=== PATIENT | male | born 1985 | race Hispanic/Latino ===

== ENCOUNTER 2023-03-13 05:41 | Day surgery (SDC) | payer OTHER ==
[2023-03-09 14:33] LABS: BASOPHILS # (AUTO) 0.04 K/uL (0.00-0.20); BASOPHILS % (AUTO) 0.7 % (0.0-5.0); EOSINOPHILS # (AUTO) 0.23 K/uL (0.00-0.70); EOSINOPHILS % (AUTO) 3.8 % (0.0-8.0); HEMATOCRIT 44.5 % (42-54); IMMATURE GRANULOCYTE ABSOLUTE 0.03 K/uL (0-1); LYMPHOCYTES # (AUTO) 1.7 K/uL (1.0-4.8); LYMPHOCYTES % (AUTO) 27.9 % (21.0-51.0); MEAN CORPUSCULAR HEMOGLOBIN 28.3 pg (27.0-33.0); MEAN CORPUSCULAR HGB CONC 33.7 g/dL (32.0-36.0); MONOCYTES # (AUTO) 0.4 K/uL (0.1-1.0); MONOCYTES % (AUTO) 6.2 % (3.0-13.0); NEUTROPHILS # (AUTO) 3.7 K/uL (1.8-7.7); NEUTROPHILS % (AUTO) 60.9 % (40.0-77.0); PLATELET COUNT (AUTO) 276 K/uL (130-400); RED CELL DISTRIBUTION WIDTH 13.7 % (11.0-15.5); WHITE BLOOD COUNT (AUTO) 6.1 K/uL (4.8-10.8)
[2023-03-09 14:39] LABS: ALBUMIN 3.7 g/dL (3.5-5.0); CREATININE 1.1 mg/dL (0.5-1.5)
[2023-03-09 14:49] VITALS: BP 131/82; PULSE 89; RESP 18
[~2023-03-13] VITALS: Ht 175.3 cm; Wt 87.3 kg
[2023-03-13] VITALS (12 sets, daily range): BP systolic 98–136; BP diastolic 61–85; PULSE 71–109; RESP 14–17
[~2023-03-13 05:41] MED LIST: FAMO20TA8 PO; FENO48TA10 PO; LOSA50TA64 PO; VENL-191 PO
[2023-03-13] MEDS ORDERED: ACETAMINOPHEN 1,000 MG/100 ML VIAL IV ONE (06:37)
[2023-03-13] MEDS ORDERED: LIDOCAINE PF 100MG/5ML (2%) SYRINGE 5ML ONE (06:40)
[2023-03-13] MEDS ORDERED: MIDAZOLAM HCL 1 MG/ML 2ML VIAL ONE (06:41)
[2023-03-13] MEDS ORDERED: PROPOFOL 10 MG/ML 20ML VIAL IV ONE (06:41)
[2023-03-13] MEDS ORDERED: FENTANYL CITRATE PF 50 MCG/1 ML 2ML VIAL ONE (06:42)
[2023-03-13] MEDS ORDERED: DEXAMETHASONE SOD PHOSPHATE 10MG/ML 1ML VIAL ONE (07:19)
[2023-03-13] MEDS ORDERED: ONDANSETRON 4MG INJ ONE (07:19)
[2023-03-13] MEDS: CEFAZOLIN SODIUM 2 GM VIAL ONE (07:24)
[2023-03-13] MEDS ORDERED: ROCURONIUM BROMIDE 10MG/1ML 5ML VL ONE (07:26)
[2023-03-13] MEDS: BUPIVACAINE/PF 0.25% 30ML VIAL IJ ONE (07:36)
[2023-03-13] MEDS ORDERED: GLYCOPYRROLATE 0.2 MG/ML 5 ML VIAL ONE (07:42)
[2023-03-13] MEDS ORDERED: EPHEDRINE SULFATE 50 MG/ML AMPULE ONE (07:49)
[2023-03-13] MEDS: LACTATED RINGERS 1000ML 1,000 ML IV ONE (07:51)
[2023-03-13] MEDS: KETOROLAC 30MG VIAL (30MG/ML) ONE (08:45)
[2023-03-13] MEDS ORDERED: ACET-2079 PO (08:50)
== END 2023-03-13 09:40 | disposition home or self-care (01) ==
LOC: DAH 05:41
PROVIDERS: ATTEND Student in an Organized Health Care Education/Training Program
DX: D36.12 Benign neoplasm of peripheral nerves and autonomic nervous system, upper limb, including shoulder (principal); I10 Essential (primary) hypertension; E78.5 Hyperlipidemia, unspecified; J45.909 Unspecified asthma, uncomplicated; G47.30 Sleep apnea, unspecified; Z79.01 Long term (current) use of anticoagulants; Z79.899 Other long term (current) drug therapy; Z96.653 Presence of artificial knee joint, bilateral; Z82.49 Family history of ischemic heart disease and other diseases of the circulatory system
CPT/HCPCS: 82040; 80048; 85025; 84134; 86140; 36415; 64790; 88307; 88342; 88341; A4663; A6207; A4606; J7120; J3010; J1100; J0665; J3490 ×3; J2001; J2250; J2704; J2405; J1885; J0690; A4649; A4930; A5120; A4215; A4223; A4222; A4221; G0168